=== PATIENT | female | born 1965 | race Caucasian/White ===

== ENCOUNTER → 2016-07-02 | Outpatient (REF) | payer BC ==
[2016-07-02 12:07] LABS: MEAN CORPUSCULAR HEMOGLOBIN 29.7 pg (27.0-33.0); MEAN CORPUSCULAR HGB CONC 33.3 g/dl (32.0-36.5); MEAN CORPUSCULAR VOLUME 89.1 fl (80.0-96.0); RED CELL DISTRIBUTION WIDTH 12.8 % (11.5-14.5); WHITE BLOOD COUNT 6.6 K/mm3 (4.0-10.0)
[2016-07-02 13:02] LABS: ALBUMIN 3.8 GM/DL (3.2-5.2); ALBUMIN/GLOBULIN RATIO 1.19 (1.00-1.93); ALKALINE PHOSPHATASE 57 U/L (45-117); ALT/SGPT 11 U/L (12-78); ANION GAP 8 MEQ/L (8-16); AST/SGOT 11 U/L (15-37); BILIRUBIN,TOTAL 0.3 MG/DL (0.2-1.0); BLOOD UREA NITROGEN 15 MG/DL (7-18); CALCIUM LEVEL 9.1 MG/DL (8.5-10.1); CARBON DIOXIDE LEVEL 28 MEQ/L (21-32); CHLORIDE LEVEL 107 MEQ/L (98-107); CHOLESTEROL LEVEL 285 MG/DL (<200); GLOMERULAR FILTRATION RATE > 60.0 (>51); GLUCOSE, FASTING 81 MG/DL (70-105); POTASSIUM SERUM 4.4 MEQ/L (3.5-5.1); SODIUM LEVEL 143 MEQ/L (136-145); TRIGLYCERIDES LEVEL 60 MG/DL (<150)
== END ==
LOC: M SFHCPLAZ 09:19
PROVIDERS: ATTEND Nurse Practitioner Adult Health
DX: Z00.00 Encounter for general adult medical examination without abnormal findings (principal); M81.0 Age-related osteoporosis without current pathological fracture

== ENCOUNTER → 2016-09-12 | Outpatient (CLI) | payer BC ==
--- NOTE | 2016-09-12 10:20 | REP ---
Clinical: Trauma. Contusion. Technique: AP, lateral, bilateral oblique views of the left hand. Findings: There is a comminuted fracture involving the third metacarpal bone. Remainder examination appears normal. Impression: Comminuted fracture of the third metacarpal bone. Signed by Morgan Dewey MD 09/12/2016 10:11 A
--- NOTE | 2016-09-12 10:24 | REP ---
Clinical: Trauma. Contusion. Technique: Complete orbital x-ray series. Findings: Six images from the bilateral orbits/facial bones appear normal. No acute fracture or dislocation. Visualized sinuses are clear. Nasal bones here intact. Impression: Normal orbital x-ray series. No acute fracture or dislocation. Signed by Morgan Dewey MD 09/12/2016 10:15 A
== END ==
LOC: M WUC 09:46
PROVIDERS: ATTEND Physician Assistant
DX: S00.03XA Contusion of scalp, initial encounter (principal); S62.303A Unspecified fracture of third metacarpal bone, left hand, initial encounter for closed fracture; X58.XXXA Exposure to other specified factors, initial encounter; Y93.9 Activity, unspecified; Y92.9 Unspecified place or not applicable; Y99.8 Other external cause status

== ENCOUNTER → 2017-07-05 | Outpatient (REF) | payer BC | LOC: M SFHCPLAZ 13:43 | DX: Z01.419 Encounter for gynecological examination (general) (routine) without abnormal findings (principal) | CPT/HCPCS: G0123 ==

== ENCOUNTER → 2017-07-05 | Outpatient (CLI) | payer BC | LOC: M WUC 11:46 | DX: M54.32 Sciatica, left side (principal); M51.37 Other intervertebral disc degeneration, lumbosacral region; M51.36 Other intervertebral disc degeneration, lumbar region | CPT/HCPCS: 72110 ==

== ENCOUNTER 2018-01-10 08:13 | Outpatient (RCR) | payer BC | END 2018-01-18 | LOC: M PT 08:13 | DX: Z51.89 Encounter for other specified aftercare (principal); M54.32 Sciatica, left side | CPT/HCPCS: 97010 ==

== ENCOUNTER 2018-01-19 15:42 | Outpatient (RCR) | payer BC | END 2018-02-18 | LOC: M PT 01-26 16:00 | DX: Z51.89 Encounter for other specified aftercare (principal); M54.32 Sciatica, left side | CPT/HCPCS: 97010 ==

== ENCOUNTER → 2018-07-05 | Outpatient (REF) | payer BC ==
[2018-07-05 11:43] LABS: HEMATOCRIT 44.9 % (36.0-47.0); HEMOGLOBIN 14.7 g/dl (12.0-15.5); MEAN CORPUSCULAR HGB CONC 32.7 g/dl (32.0-36.5); MEAN CORPUSCULAR VOLUME 88.6 fl (80.0-96.0); PLATELET COUNT, AUTOMATED 393 10^3/uL (150-450); RED BLOOD COUNT 5.07 10^6/uL (4.00-5.40); WHITE BLOOD COUNT 6.9 10^3/uL (4.0-10.0)
[2018-07-05 12:19] LABS: ALBUMIN 3.8 GM/DL (3.2-5.2); ALT/SGPT 13 U/L (12-78); BILIRUBIN,TOTAL 0.4 MG/DL (0.2-1.0); BLOOD UREA NITROGEN 13 MG/DL (7-18); CALCIUM LEVEL 8.8 MG/DL (8.5-10.1); CARBON DIOXIDE LEVEL 25 MEQ/L (21-32); CHLORIDE LEVEL 104 MEQ/L (98-107); CHOLESTEROL LEVEL 258 MG/DL (<200); CHOLESTEROL RISK RATIO 2.965 (<5); CREATININE FOR GFR 0.75 MG/DL (0.55-1.30); GLOMERULAR FILTRATION RATE > 60.0 (>51); GLUCOSE, FASTING 75 MG/DL (70-100); HDL CHOLESTEROL 87 MG/DL (>40); LDL CHOLESTEROL 144 MG/DL (<100); NON-HDL-C 171 MG/DL; POTASSIUM SERUM 4.3 MEQ/L (3.5-5.1); SODIUM LEVEL 138 MEQ/L (136-145); TOTAL PROTEIN 7.2 GM/DL (6.4-8.2); TRIGLYCERIDES LEVEL 137 MG/DL (<150)
== END ==
LOC: M SFHCPLAZ 08:47
PROVIDERS: ATTEND Nurse Practitioner Adult Health
DX: Z00.00 Encounter for general adult medical examination without abnormal findings (principal); Z13.220 Encounter for screening for lipoid disorders

== ENCOUNTER → 2018-08-15 | Outpatient (CLI) | payer BC ==
--- NOTE | 2018-08-16 08:24 | REPMRS ---
Patient History The patient states she had a clinical breast exam in 06/2018. Patient has history of other cancer at age 49. Family history of breast cancer in paternal grandmother. Taking hormonal contraceptives for 34 years 3 months. Digital Woman Screen Mammo: August 15, 2018 - Exam #: [id number] Bilateral CC and MLO view(s) were taken. Technologist: Roxi Childers Technologist Prior study comparison: May 29, 2016, digital woman screen mammo performed at [facility]. August 03, 2014, digital woman screen mammo performed at [facility]. October 11, 2012, digital woman screen mammo performed at [facility]. FINDINGS: The breast tissue is heterogeneously dense. This may lower the sensitivity of mammography. There is a moderate amount of heterogeneously dense fibroglandular tissue which is fairly symmetric. There is no interval development of dominant mass, architectural distortion, or clustered microcalcification typical of malignancy. There has been no change in the appearance of the mammogram from the prior studies. 3-D tomosynthesis shows no additional findings. Assessment: BI-RADS/ACR category 1 mammogram. Negative Mammogram. Recommendation Routine screening mammogram of both breasts in 1 year (for women over age 40). This patient's Lifetime Breast Cancer RIsk is estimated at 13.1 %. This mammogram was interpreted with the aid of an FDA-approved computer-aided dectection system. Electronically Signed By: Reno Sal MD 08/16/18 0823
--- NOTE | 2018-08-16 15:38 | DEXA ---
AP SPINE L1 - L4 1.059 -1.1 -0.3 LT FEMUR TOTAL 0.720 -2.3 -1.6 LT NECK 0.759 -2.0 -1.0 RT FEMUR TOTAL 0.745 -2.1 -1.4 RT NECK 0.761 -2.0 -1.2 TOTAL BODY TOTAL OTHER COMMENTS: There is low bone density of the spine and hips. The density of the spine has increased 10.2% since the initial exam on 01/11/2006. The spine density has increased 1.6% since the most recent exam on 10/11/2012. The density of the left hip has decreased 1.1% since the initial exam on 01/11/2006. The density of the left hip has decreased 2.0% since the most recent exam on 10/11/2012. The density of the right hip has increased 1.6% since the initial exam on 01/11/2006. The density of the right hip has increased 3.9% since the most recent exam on 10/11/2012. FOLLOW-UP: Recommendation for the next bone density exam: 2 years. JIMBO
== END ==
LOC: M WHC 10:48
PROVIDERS: ATTEND Nurse Practitioner Adult Health
DX: Z12.31 Encounter for screening mammogram for malignant neoplasm of breast (principal)

== ENCOUNTER → 2019-07-27 | Outpatient (CLI) | payer BC ==
[2019-07-27 09:18] LABS: HEMOGLOBIN 14.3 g/dl (12.0-15.5); MEAN CORPUSCULAR HEMOGLOBIN 28.9 pg (27.0-33.0); MEAN CORPUSCULAR HGB CONC 31.8 g/dl (32.0-36.5); MEAN CORPUSCULAR VOLUME 91.1 fl (80.0-96.0); PLATELET COUNT, AUTOMATED 373 10^3/uL (150-450); RED BLOOD COUNT 4.94 10^6/uL (4.00-5.40); WHITE BLOOD COUNT 7.3 10^3/uL (4.0-10.0)
[2019-07-27 09:50] LABS: ALBUMIN 3.8 GM/DL (3.2-5.2); ALT/SGPT 11 U/L (12-78); BILIRUBIN,TOTAL 0.4 MG/DL (0.2-1.0); BLOOD UREA NITROGEN 14 MG/DL (7-18); CALCIUM LEVEL 9.1 MG/DL (8.5-10.1); CARBON DIOXIDE LEVEL 26 MEQ/L (21-32); CHLORIDE LEVEL 106 MEQ/L (98-107); CHOLESTEROL LEVEL 254 MG/DL (<200); CHOLESTEROL RISK RATIO 2.702 (<5); CREATININE FOR GFR 0.87 MG/DL (0.55-1.30); GLOMERULAR FILTRATION RATE > 60.0 (>51); GLUCOSE, FASTING 75 MG/DL (70-100); HDL CHOLESTEROL 94 MG/DL (>40); LDL CHOLESTEROL 141 MG/DL (<100); NON-HDL-C 160 MG/DL; POTASSIUM SERUM 4.2 MEQ/L (3.5-5.1); SODIUM LEVEL 140 MEQ/L (136-145); TRIGLYCERIDES LEVEL 97 MG/DL (<150)
== END ==
LOC: M LAB 08:30
PROVIDERS: ATTEND Nurse Practitioner Adult Health
DX: Z00.00 Encounter for general adult medical examination without abnormal findings (principal); Z13.220 Encounter for screening for lipoid disorders; E55.9 Vitamin D deficiency, unspecified

== ENCOUNTER → 2020-02-25 | Outpatient (REF) | payer BC | LOC: M WUC 17:05 | PROVIDERS: ATTEND Nurse Practitioner Family | DX: N39.0 Urinary tract infection, site not specified (principal) ==

== ENCOUNTER → 2020-03-14 | Outpatient (CLI) | payer BC | LOC: M LABSMTC 12:48 | PROVIDERS: ATTEND Pediatrics | DX: Z20.828 Contact with and (suspected) exposure to other viral communicable diseases (principal) | CPT/HCPCS: C9803; U0002 ==

== ENCOUNTER → 2020-07-03 | Outpatient (REF) | payer BC | LOC: M SFHCPLAZ 16:48 | PROVIDERS: ATTEND Nurse Practitioner Adult Health | DX: R35.0 Frequency of micturition (principal) ==

== ENCOUNTER → 2020-08-05 | Outpatient (REF) | payer BC ==
[2020-08-05 18:10] LABS: ALBUMIN 3.5 GM/DL (3.2-5.2); ALT/SGPT 12 U/L (12-78); BILIRUBIN,TOTAL 0.2 MG/DL (0.2-1.0); BLOOD UREA NITROGEN 13 MG/DL (7-18); CARBON DIOXIDE LEVEL 29 MEQ/L (21-32); CHLORIDE LEVEL 106 MEQ/L (98-107); CHOLESTEROL LEVEL 256 MG/DL (<200); CHOLESTEROL RISK RATIO 3.084 (<5); CREATININE FOR GFR 0.76 MG/DL (0.55-1.30); GLOMERULAR FILTRATION RATE > 60.0 (>51); GLUCOSE, FASTING 89 MG/DL (70-100); HDL CHOLESTEROL 83 MG/DL (>40); LDL CHOLESTEROL 139 MG/DL (<100); NON-HDL-C 173 MG/DL; SODIUM LEVEL 141 MEQ/L (136-145); TOTAL 25(OH) VITAMIN D 29.6 NG/ML (30.0-100.0); TOTAL PROTEIN 6.9 GM/DL (6.4-8.2); TRIGLYCERIDES LEVEL 172 MG/DL (<150)
[2020-08-05 18:40] LABS: HEMOGLOBIN A1c 5.6 %
== END ==
LOC: M SFHCPLAZ 13:50
PROVIDERS: ATTEND Nurse Practitioner Adult Health
DX: Z00.00 Encounter for general adult medical examination without abnormal findings (principal); Z13.220 Encounter for screening for lipoid disorders; E55.9 Vitamin D deficiency, unspecified; Z83.3 Family history of diabetes mellitus

== ENCOUNTER → 2020-08-30 | Outpatient (CLI) | payer BC ==
--- NOTE | 2020-08-30 10:32 | REPMRS ---
Patient History The patient states she had a clinical breast exam in July 2020. Patient has history of other cancer at age 49. Family history of breast cancer in paternal grandmother. Taking hormonal contraceptives for 36 years. Digital Woman Screen Mammo: August 30, 2020 - Exam #: [id number] Bilateral CC and MLO view(s) were taken. Technologist: Lazara Szymanski, RT Prior study comparison: August 15, 2018, bilateral digital woman screen mammo performed at [facility] May 29, 2016, digital woman screen mammo performed at [facility]. August 03, 2014, digital woman screen mammo performed at [facility]. FINDINGS: The breast tissue is heterogeneously dense. This may lower the sensitivity of mammography. The Volpara volumetric breast density category is: C. There is a 7 mm nodular density seen on 3D tomography images of the left breast medially with possible spiculation. This merits further evaluation. There is a moderate amount of heterogeneously dense fibroglandular tissue which is fairly symmetric. There is no other interval development of dominant mass, architectural distortion, or grouped microcalcification typical of malignancy. There has been no change in the appearance of the mammogram from the prior studies. 3-D tomosynthesis shows no additional findings. Assessment: BI-RADS/ACR category 0 mammogram, Incomplete: Need additional imaging evaluation and/or prior mammograms for comparison. Recommendation Ultrasound and special view mammogram of the left breast. This patient's [facility] Lifetime Breast Cancer RIsk is estimated at %. This mammogram was interpreted with the aid of an FDA-approved computer-aided dectection system. Electronically Signed By: Reno Sal MD 08/30/20 [id number]
--- NOTE | 2020-08-30 11:00 | DEXAMM ---
INDICATION: M81.0 OSTEOPOROSIS. COMPARISON: 08/15/2018 as well as other prior exams. TECHNIQUE: Bone density was measured using dual-energy x-ray absorptiometry (DEXA). FINDINGS: AP SPINE L1-L4 BMD 1.108 g/cm2 Young Adult T-Score -0.7 Age Matched Z-Score 0.3. LT FEMUR, TOTAL BMD 0.750 g/cm2 Young Adult T-Score -2.0 Age Matched Z-Score -1.3. LT NECK BMD 0.749 g/cm2 Young Adult T-Score -2.1 Age Matched Z-Score -1.0. RT FEMUR, TOTAL BMD 0.756 g/cm2 Young Adult T-Score -2.0 Age Matched Z-Score -1.2. RT NECK BMD 0.756 g/cm2 Young Adult T-Score -2.0 Age Matched Z-Score -0.9. IMPRESSION: There is normal bone density of the spine. There is low bone density of the left hip. There is low bone density of the right hip. The density of the spine has increased 16.3% since the initial exam on 01/11/2006. The density of the spine increased 5.1% since most recent exam on 08/15/2018. The density of the left hip has increased 3.0% since initial exam on 01/11/2006. The density of the left hip has increased 4.2% since most recent exam on 08/15/2018. The density of the right hip has increased 3.1% since the initial exam on 01/11/2006. The density of the right hip has increased 1.5% since the most recent exam on 08/15/2018. FOLLOW-UP: Recommendation for the next bone density exam: 2 years. <Electronically signed by Nicolás Jackman > 08/30/20 [id number]
== END ==
LOC: M WHC 08:51
PROVIDERS: ATTEND Nurse Practitioner Adult Health
DX: R92.8 Other abnormal and inconclusive findings on diagnostic imaging of breast (principal); M81.0 Age-related osteoporosis without current pathological fracture; N63.20 Unspecified lump in the left breast, unspecified quadrant; M85.851 Other specified disorders of bone density and structure, right thigh; M85.852 Other specified disorders of bone density and structure, left thigh

== ENCOUNTER → 2020-09-06 | Outpatient (CLI) | payer BC ==
--- NOTE | 2020-09-06 10:21 | REP ---
INDICATION: ADDL VIEWS/LEFT BREAST NODULE; LEFT BREAST NODULE. Screening mammography from August 30, 2020 was BI-RADS category 0 because of a 7 mm nodular opacity in the left breast slightly medially. COMPARISON: Comparison is also made with mammography from August 15, 2018 and May 29, 2016. TECHNIQUE: Magnified focal spot-compression CC, mL, and MLO mammographic images are acquired. A true mL projection with 3D tomography is provided. Targeted left breast sonography is carried. This mammogram was interpreted with the aid of an FDA-approved computer-aided detection system. FINDINGS: Diagnostic mammography images demonstrate that the area in question is less conspicuous. A faint low-density nodule persists on mL and equivocally on CC projection view. 3D tomography in the mL projection does not show this. There is no evidence of spiculation mammographically. No microcalcification is observed. . Targeted ultrasound: Targeted left breast sonography is performed the medial aspect of the left breast. There is a mildly dilated duct visible at 6 o'clock. No intraluminal abnormality. At 7 o'clock, 3 cm from the nipple there is a 5 mm cyst. There are 2 cysts in the retroareolar region at 12 o'clock measuring 1.2 and 0.9 cm in greatest diameter. 0.9 cm cyst is felt to account for the mammographic opacity. No solid lesion or acoustic shadowing is seen by ultrasound. IMPRESSION: BIRADS/ACR category 2 benign left breast mammographic and sonographic findings. Cyst seen on sonography accounting for the mammographic opacity. This patient's Tyrer-Cuzick lifetime breast cancer risk assessment score is 12.5%. RECOMMENDATION: Repeat screening mammography recommended 1 year (for women over 40). The patient letter being requested is M1. <Electronically signed by Reno Sal > 09/06/20 1016
== END ==
LOC: M WHC 08:26
PROVIDERS: ATTEND Nurse Practitioner Adult Health
DX: R92.8 Other abnormal and inconclusive findings on diagnostic imaging of breast (principal)

== ENCOUNTER → 2021-02-07 | Outpatient (REF) | payer BC | LOC: M SFHCPLAZ 02-06 16:28 | PROVIDERS: ATTEND Nurse Practitioner Adult Health | DX: R35.0 Frequency of micturition (principal) ==

== ENCOUNTER → 2021-10-13 | Outpatient (REF) | payer BC | LOC: M SFHCPLAZ 17:57 | PROVIDERS: ATTEND Nurse Practitioner Adult Health | DX: Z12.4 Encounter for screening for malignant neoplasm of cervix (principal); R87.610 Atypical squamous cells of undetermined significance on cytologic smear of cervix (ASC-US) | CPT/HCPCS: 87624; G0123 ==

== ENCOUNTER → 2021-10-13 | Outpatient (CLI) | payer BC ==
[2021-10-13 15:34] LABS: ALBUMIN 3.7 GM/DL (3.2-5.2); ALT/SGPT 17 U/L (12-78); BILIRUBIN,TOTAL 0.3 MG/DL (0.2-1.0); BLOOD UREA NITROGEN 14 MG/DL (7-18); CARBON DIOXIDE LEVEL 28 MEQ/L (21-32); CHLORIDE LEVEL 105 MEQ/L (98-107); CHOLESTEROL LEVEL 310 MG/DL (<200); CHOLESTEROL RISK RATIO 3.333 (<5); CREATININE FOR GFR 0.68 MG/DL (0.55-1.30); GLOMERULAR FILTRATION RATE > 60.0 (>51); GLUCOSE, FASTING 76 MG/DL (70-100); HDL CHOLESTEROL 93 MG/DL (>40); LDL CHOLESTEROL 203 MG/DL (<100); NON-HDL-C 217 MG/DL; POTASSIUM SERUM 3.8 MEQ/L (3.5-5.1); SODIUM LEVEL 139 MEQ/L (136-145); THYROID STIMULATING HORMONE 0.639 uIU/ML (0.358-3.740); TOTAL PROTEIN 6.8 GM/DL (6.4-8.2); TRIGLYCERIDES LEVEL 71 MG/DL (<150)
[2021-10-13 15:38] LABS: HEMOGLOBIN A1c 5.3 %
[2021-10-13 15:51] LABS: TOTAL 25(OH) VITAMIN D 26.2 NG/ML (30.0-100.0)
== END ==
LOC: M PLALAB 12:05
PROVIDERS: ATTEND Nurse Practitioner Adult Health
DX: Z00.00 Encounter for general adult medical examination without abnormal findings (principal); Z83.3 Family history of diabetes mellitus; E55.9 Vitamin D deficiency, unspecified; Z13.220 Encounter for screening for lipoid disorders

== ENCOUNTER → 2021-12-07 | Outpatient (REF) | LOC: M LABSMTC 12:02 | PROVIDERS: ATTEND Family Medicine | DX: Z20.828 Contact with and (suspected) exposure to other viral communicable diseases (principal) ==

== ENCOUNTER → 2022-01-07 | Outpatient (CLI) | payer BC | LOC: M WHC 12:52 | PROVIDERS: ATTEND Nurse Practitioner Adult Health | DX: Z12.31 Encounter for screening mammogram for malignant neoplasm of breast (principal) ==

== ENCOUNTER → 2022-02-24 | Outpatient (CLI) | payer BC | LOC: M RAD 10:02 | PROVIDERS: ATTEND Nurse Practitioner Adult Health | DX: M54.50 Low back pain, unspecified (principal); M25.78 Osteophyte, vertebrae; M43.17 Spondylolisthesis, lumbosacral region; M47.816 Spondylosis without myelopathy or radiculopathy, lumbar region; M43.16 Spondylolisthesis, lumbar region ==

== ENCOUNTER → 2022-03-16 | Outpatient (CLI) | payer BC | LOC: M PLAIMG 15:30 | PROVIDERS: ATTEND Nurse Practitioner Adult Health | DX: M43.16 Spondylolisthesis, lumbar region (principal); M48.061 Spinal stenosis, lumbar region without neurogenic claudication ==

== ENCOUNTER 2022-03-24 13:46 | Outpatient (RCR) | payer BC | END 2022-04-20 | LOC: M PT 13:46 | PROVIDERS: ATTEND Nurse Practitioner Adult Health | DX: M54.50 Low back pain, unspecified (principal) ==

== ENCOUNTER → 2023-02-05 | Outpatient (REF) | payer BC | LOC: M SFHCPLAZ 13:02 | PROVIDERS: ATTEND Physician Assistant Medical | DX: R06.02 Shortness of breath (principal) ==

== ENCOUNTER → 2023-02-25 | Outpatient (CLI) | payer BC | LOC: M PLAIMG 09:53 | PROVIDERS: ATTEND Nurse Practitioner Adult Health | DX: R05.1 Acute cough (principal) ==

== ENCOUNTER → 2023-11-22 | Outpatient (CLI) | payer BC ==
[2023-11-22 15:38] LABS: HEMATOCRIT 44.7 % (36.0-47.0); HEMOGLOBIN 14.3 g/dl (12.0-15.5); MEAN CORPUSCULAR HEMOGLOBIN 29.5 pg (27.0-33.0); MEAN CORPUSCULAR VOLUME 92.2 fl (80.0-96.0); PLATELET COUNT, AUTOMATED 415 10^3/uL (150-450); RED BLOOD COUNT 4.85 10^6/uL (4.00-5.40); WHITE BLOOD COUNT 7.2 10^3/uL (4.0-10.0)
[2023-11-22 16:05] LABS: ALBUMIN 3.6 G/DL (3.2-5.2); ALKALINE PHOSPHATASE 86 U/L (46-116); ALT/SGPT < 9 U/L (7.0-40); AST/SGOT 16 U/L (<34); BILIRUBIN,TOTAL 0.4 MG/DL (0.3-1.2); BLOOD UREA NITROGEN 16 MG/DL (9-23); CALCIUM LEVEL 9.5 MG/DL (8.3-10.6); CARBON DIOXIDE LEVEL 28 MMOL/L (20-31); CHLORIDE LEVEL 107 MMOL/L (98-107); CHOLESTEROL LEVEL 275 MG/DL (<200); CHOLESTEROL RISK RATIO 2.87 (<5); CREATININE FOR GFR 0.71 MG/DL (0.55-1.30); GLOMERULAR FILTRATION RATE > 60.0 (>45); GLUCOSE, FASTING 78 MG/DL (74-106); HDL CHOLESTEROL 95.7 MG/DL (>40); LDL CHOLESTEROL 164.9 MG/DL (<100); NON-HDL-C 179.3 MG/DL; SODIUM LEVEL 141 MMOL/L (136-145); THYROID STIMULATING HORMONE 0.954 uIU/ML (0.55-4.78); TOTAL 25(OH) VITAMIN D 39.1 NG/ML (20.0-100.0); TOTAL PROTEIN 6.7 G/DL (5.7-8.2); TRIGLYCERIDES LEVEL 72 MG/DL (<150)
== END ==
LOC: M PLALAB 12:22
PROVIDERS: ATTEND Nurse Practitioner Adult Health
DX: Z00.00 Encounter for general adult medical examination without abnormal findings (principal); Z83.3 Family history of diabetes mellitus; E55.9 Vitamin D deficiency, unspecified; Z13.220 Encounter for screening for lipoid disorders

== ENCOUNTER → 2024-01-10 | Outpatient (CLI) | payer BC | LOC: M WHC 07:56 | PROVIDERS: ATTEND Nurse Practitioner Adult Health | DX: Z12.31 Encounter for screening mammogram for malignant neoplasm of breast (principal); R92.323 Mammographic fibroglandular density, bilateral breasts; R92.8 Other abnormal and inconclusive findings on diagnostic imaging of breast ==

== ENCOUNTER → 2024-02-01 | Outpatient (CLI) | payer BC | LOC: M WHC 08:27 | PROVIDERS: ATTEND Nurse Practitioner Adult Health | DX: R92.8 Other abnormal and inconclusive findings on diagnostic imaging of breast (principal); N63.10 Unspecified lump in the right breast, unspecified quadrant | CPT/HCPCS: 76642; 77065; G0279 ==

== ENCOUNTER → 2024-02-11 | Outpatient (REF) | payer BC | LOC: M SFHCDERM 17:30 | PROVIDERS: ATTEND Physician Assistant | DX: D49.2 Neoplasm of unspecified behavior of bone, soft tissue, and skin (principal) ==

== ENCOUNTER → 2024-03-17 | Outpatient (REF) | payer BC | LOC: M SFHCDERM 18:05 | PROVIDERS: ATTEND Physician Assistant | DX: L90.5 Scar conditions and fibrosis of skin (principal); Z85.828 Personal history of other malignant neoplasm of skin ==

== ENCOUNTER → 2024-03-25 | Outpatient (REF) | payer BC | LOC: M LAB REF 21:51 | PROVIDERS: ATTEND Student in an Organized Health Care Education/Training Program | DX: L03.116 Cellulitis of left lower limb (principal) ==

== ENCOUNTER → 2024-03-30 | Outpatient (REF) | payer BC | LOC: M SFHCDERM 17:22 | PROVIDERS: ATTEND Physician Assistant | DX: T81.49XA Infection following a procedure, other surgical site, initial encounter (principal) ==

== ENCOUNTER → 2024-04-18 | Outpatient (REF) | payer BC | LOC: M LAB REF 12:42 | PROVIDERS: ATTEND Physician Assistant | DX: T81.49XA Infection following a procedure, other surgical site, initial encounter (principal); Y84.8 Other medical procedures as the cause of abnormal reaction of the patient, or of later complication, without mention of misadventure at the time of the procedure ==

== ENCOUNTER → 2024-07-03 | Outpatient (REF) | payer BC | LOC: M SFHCPLAZ 16:57 | PROVIDERS: ATTEND Nurse Practitioner Adult Health | DX: R09.81 Nasal congestion (principal) ==

== ENCOUNTER → 2024-07-24 | Outpatient (CLI) | payer BC | LOC: M WHC 07:41 | PROVIDERS: ATTEND Internal Medicine Hematology & Oncology | DX: C50.919 Malignant neoplasm of unspecified site of unspecified female breast (principal); M85.89 Other specified disorders of bone density and structure, multiple sites ==

== ENCOUNTER → 2025-05-20 | Outpatient (REF) | payer BC | LOC: M LAB REF 17:36 | PROVIDERS: ATTEND Registered Nurse | DX: N39.0 Urinary tract infection, site not specified (principal) ==